=== PATIENT | male | born 1990 | race Caucasian/White ===

== ENCOUNTER 2018-11-30 14:56 | Emergency (ER) | payer OTHER ==
[~2018-11-30] VITALS: Ht 157.5 cm; Wt 45.4 kg
[2018-11-30 15:34] VITALS: BP 104/73
== END 2018-11-30 15:45 ==
LOC: M.ERS 14:56
DX: S93.692A Other sprain of left foot, initial encounter (principal); F17.200 Nicotine dependence, unspecified, uncomplicated; W22.8XXA Striking against or struck by other objects, initial encounter; Y93.89 Activity, other specified; Y92.89 Other specified places as the place of occurrence of the external cause; Y99.8 Other external cause status